=== PATIENT | male | born 1995 | race Two or more races ===

== ENCOUNTER 2025-08-05 23:40 | Emergency (ER) | payer OTHER ==
[~2025-08-05] VITALS: Ht 180.3 cm; Wt 83.9 kg
[2025-08-06] MEDS ORDERED: KETOROLAC TROMETHAMINE 30 MG VIAL IV STA (03:14)
[2025-08-06] MEDS ORDERED: CEFTRIAXONE SODIUM 1,000 MG VIAL IV STA (03:14)
[2025-08-06] MEDS ORDERED: KETOROLAC TROMETHAMINE 30 MG VIAL ONE (03:55)
[2025-08-06] MEDS ORDERED: CEFTRIAXONE SODIUM 1,000 MG VIAL ONE (03:55)
[2025-08-06 04:41] LABS: BASO % 0.1 % (0.1-1.2); EOS # 0.07 (0.04-0.54); EOS % 1.0 % (0.7-7.0); LYMPH # 1.98 (1.18-3.74); LYMPH % 27.6 % (19.3-53.1); MEAN PLATELET VOLUME 10.20 fl (9.4-12.4); MONO # 0.52 (0.24-0.82); MONO % 7.3 % (4.7-12.5); NEUT # 4.56 (1.56-6.13); NEUT % 63.6 % (34.0-71.1); RED CELL DISTRIBUTION WIDTH 11.1 % (11.6-14.4)
[2025-08-06] MEDS ORDERED: DIPHENHYDRAMINE HCL 50 MG/ML VIAL 1ML ONE (05:17)
[2025-08-06] MEDS ORDERED: METHYLPREDNISOLONE SOD SUCC 125 MG VIAL ONE (05:18)
[2025-08-06] MEDS ORDERED: METHYLPREDNISOLONE SOD SUCC 125 MG VIAL IV STA (05:19)
[2025-08-06] MEDS ORDERED: DIPHENHYDRAMINE HCL 50 MG/ML VIAL 1ML IV STA (05:19)
[2025-08-06] MEDS ORDERED: KETO10TA2 PO (06:50)
[2025-08-06] MEDS ORDERED: CEPHALEXIN500 MG PO (06:50)
== END 2025-08-06 08:20 ==
LOC: ER 23:40
PROVIDERS: General Practice
DX: R22.0 Localized swelling, mass and lump, head (principal)
CPT/HCPCS: 36415; 70487; Q9965